=== PATIENT | female | born 1970 | race African-American/Black ===

== ENCOUNTER → 2017-12-31 | Outpatient (CLI) | payer OTHER ==
--- NOTE | 2017-12-31 13:53 | RAD ---
Examination: X-rays of the left wrist. Clinical history: Left wrist injury, left wrist pain radiating to thumb. Technique: Three views of the left wrist were obtained. Comparison: None available. Findings: No acute fracture, dislocation, or destructive bony lesion is noted. [id number] osteoarthritic changes are noted at the 1st carpometacarpal joint. No soft tissue abnormality is noted. Impression: 1. No acute fracture or dislocation. 2. Arthropathy, as described above. Reported By:
== END ==
LOC: RAD 11:06
PROVIDERS: ATTEND Nurse Practitioner Family
DX: M25.532 Pain in left wrist (principal)
CPT/HCPCS: 73100